=== PATIENT | male | born 2000 | race Two or more races ===

== ENCOUNTER 2025-07-09 09:33 | Emergency (ER) | payer OTHER ==
[~2025-07-09] VITALS: Ht 172.7 cm; Wt 77.0 kg
[2025-07-09 09:40] VITALS: BP 117/67; TEMP 97.1; O2SAT 98
[2025-07-09] MEDS ORDERED: ZOLO50TA PO (09:47)
[2025-07-09 11:05] LABS: KETONE, URINE AUTO RFX NEGATIVE (NEGATIVE); LEUKOCYTE ESTERASE UR AUTO RFX NEGATIVE (NEGATIVE); MUCUS, URINE RFX SMALL (NEGATIVE); NITRITE, URINE AUTO RFX NEGATIVE (NEGATIVE); RBC, URINE AUTO RFX 20 /HPF (0-3); SQUAM EPITHELIAL CELL UR AURFX 0 /HPF (0-6); WBC, URINE AUTO RFX 1 /HPF (0-3)
[2025-07-09 12:21] LABS: Trichomonas vaginalis (AMP) NOT DETECTED (NEGATIVE)
[2025-07-09 12:45] LABS: GC DNA AMPLIFICATION NEGATIVE (NEGATIVE)
[2025-07-09 13:07] LABS: BASO # 0.1 10^3/uL (0.0-0.2); BASO % 0.9 % (0.0-1.0); EOS # 0.4 10^3/uL (0.0-0.5); EOS % 7.0 % (0.0-3.0); LYMPH # 2.1 10^3/uL (1.5-5.0); LYMPH % 36.5 % (24.0-44.0); MONO # 0.5 10^3/uL (0.0-0.8); MONO % 7.7 % (2.0-8.0); NEUTROPHILS # 2.8 10^3/uL (1.5-8.5); NEUTROPHILS % 47.7 % (36.0-66.0); PLATELET COUNT, AUTOMATED 216 10^3/uL (150-450)
[2025-07-09 14:04] LABS: HIV 1&2 SCREEN NEGATIVE (NEGATIVE)
[2025-07-09 14:27] LABS: ALT/SGPT 33 U/L (7.0-40); AST/SGOT 41 U/L (<34); CALCIUM LEVEL 9.3 MG/DL (8.5-10.1); CARBON DIOXIDE LEVEL 26 MMOL/L (20-31); CHLORIDE LEVEL 104 MMOL/L (98-107); CREATININE FOR GFR 0.87 MG/DL (0.70-1.30); GLOMERULAR FILTRATION RATE > 90.0 (>60); POTASSIUM SERUM 4.8 MMOL/L (3.5-5.1); SODIUM LEVEL 140 MMOL/L (136-145)
== END 2025-07-09 15:31 | disposition home or self-care (01) ==
LOC: M ED 09:33
DX: R31.9 Hematuria, unspecified (principal); F32.A Depression, unspecified; Z88.0 Allergy status to penicillin

== ENCOUNTER → 2025-08-25 | Outpatient (CLI) | payer OTHER ==
[~2025-08-25] MED LIST: ISOVUE-370 76% 100 ML VIAL As Ordered ONE; ZOLO50TA PO
== END ==
LOC: M RAD 16:26
PROVIDERS: ATTEND Urology
DX: R31.0 Gross hematuria (principal); N32.89 Other specified disorders of bladder
CPT/HCPCS: 74178; Q9967